=== PATIENT | male | born 1990 | race Caucasian/White ===

== ENCOUNTER 2017-04-27 13:06 | Emergency (ER) | payer SELFPAY ==
--- NOTE | 2017-04-27 14:19 | ED Physician Documentation ---
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 Pt grabbed a tissue in which was wrapped a piece of wire, like a paper clip or thin wire from a bread tie, that had been used in [id number] tattooing among the prisoners. Pt has a punctate injury that bhavani blood from his finger. Tetanus is utd.) - ROS CONST: no problems EYES/ENT: none CVS/RESP: none GI/: none MS/SKIN/LYMPH: other (puncture wound, R index finger) - PAST HX Past History: hypertension Allergies/Adverse Reactions: Allergies Allergy/AdvReac Type Severity Reaction Status Date / Time No Known Allergies Allergy Unverified 04/27/17 13:13 Home Medications: Ambulatory Orders Medication Instructions Recorded Acyclovir [Zovirax] 400 mg PO BID 04/27/17 Metoprolol Tartrate [Lopressor] 25 mg PO BID 04/27/17 amLODIPine BESYLATE [Norvasc] 10 mg PO 0900 04/27/17 - SOCIAL HX Smoking History: non-smoker - FAMILY HX Family History: No - VITAL SIGNS Vital Signs: Vital Signs Temp Pulse Resp BP Pulse Ox 94 H 18 143/95 98 04/27/17 13:08 04/27/17 13:08 04/27/17 13:08 04/27/17 13:08 - REVIEWED ASSESSMENTS Nursing Assessment Reviewed: Yes Vitals Reviewed: Yes Progress - Progress Progress: According to CDC guidelines, this type of injury as with a solid needle, a thin wire in this case, from a source patient without symptomatic HIV, presents no increased risk of HIV transmission. Prophylactic anti-viral medications are available and were offered to pt, together with the side effects and risks of taking these medications, in a situation where the use of these medicines may not be warranted. Pt agrees to to pursue this prophylaxis. Tetanus is utd. Pt may follow up with primary provider in 6 or 12 weeks for re-testing and reassurance. ED Results Lab/Radiology - Orders Orders: ED Orders Category Date Time Status HEPATITIS B CORE AB, IGM Stat Lab 04/27/17 Ordered HEPATITIS B CORE AB, TOTAL Stat Lab 04/27/17 Ordered HEPATITIS B SURFACE AB,QUANT Stat Lab 04/27/17 Ordered HEPATITIS B SURFACE AG Stat Lab 04/27/17 Ordered HEPATITIS C ANTIBODY Stat Lab 04/27/17 Ordered HIV-1/2 COMBO AG/AB CHRIS,REFLEX Stat Lab 04/27/17 Ordered RENAL PANEL Stat Lab 04/27/17 Ordered General Adult Physical Exam - PHYSICAL EXAM GENERAL APPEARANCE: no distress NECK: normal inspection, supple RESPIRATORY: no resp distress BACK: normal inspection SKIN: other (punctate injury to R index finger) EXTREMITIES: non-tender, normal range of motion, no evidence of injury NEURO: oriented X3, motor nml, sensation nml Discharge Clincal Impression: Needle stick injury of finger Qualifiers: Encounter type: initial encounter Qualified Code(s): S61.239A - Puncture wound without foreign body of unspecified finger without damage to nail, initial encounter; W27.3XXA - Contact with needle (sewing), initial encounter; W27.3XXA - Contact with needle (sewing), initial encounter Referrals: Primary Doctor,No [Primary Care Provider] - Condition: Good Disposition: 01 HOME, SELF-CARE Decision to Admit: NO Decision Time: 14:27
[2017-04-27 14:41] VITALS: BP 103/65
== END 2017-04-27 14:40 | disposition home or self-care (01) ==
LOC: ED 13:06
DX: S61.239A Puncture wound without foreign body of unspecified finger without damage to nail, initial encounter (principal); W26.8XXA Contact with other sharp object(s), not elsewhere classified, initial encounter; Y93.89 Activity, other specified; Y92.149 Unspecified place in prison as the place of occurrence of the external cause; Y99.0 Civilian activity done for income or pay
CPT/HCPCS: 80069; 86703; 86704; 86705; 86706; 86803; 87340; 99283; 99284